=== PATIENT | female | born 1960 | race Caucasian/White ===

== ENCOUNTER 2023-10-21 15:35 | Emergency (ER) | payer BC, SELFPAY ==
[2023-10-21 15:42] VITALS: BP 141/85
--- NOTE | 2023-10-21 16:22 | ED.GENMED ---
History of Present Illness
General
Chief Complaint: Cough
Source: patient
Time Seen by Provider: 10/21/23 16:04
Travel History
Have you had any contact with someone who has COVID-19?: No
Do you have any symptoms of coronavirus? Fever > 100 degrees, chills, cough, shortness of breath, sore throat, loss of taste or smell, muscle aches, or headache?: No
History of Present Illness
History of Present Illness:
62-year-old female presents to the emergency room after being advised to come here by an urgent care. Patient has been feeling unwell for the past couple days with a right ear ache, cough and mild shortness of breath. Patient leads her asthma is
'acting up' due to a cold. She has not had a fever. But she feels mildly short of breath it is not to the extent that limits her activities. She has never been hospitalized for asthma. Patient states that the urgent care they gave her a
breathing treatment and a 'shot of steroids'. Patient felt jittery after the breathing treatment but actually felt like her breathing was better. However they measured her pulse ox and stated it was too low at 94%.
Past History
Past History
ED Past Medical History: Other (Anxiety); Negative CAD, Cancer, HTN or Hypercholesterolemia
ED Past Surgical History: Appendectomy and ; Negative Cholecystectomy
Social History
Tobacco: Non-smoker
Drug: None
Personal:
Living: with family
Employment: Employed
Family History
Family History: Hypertension
Phy Exam
Physical Exam
Physical Exam:
General: Awake, Alert, Oriented X3. No acute distress.
Vitals: unremarkable
Head: Atraumatic
Eyes: Pupils equal, EOMI
Ears: Left TM normal, right TM mildly erythematous and bulging
Throat: Airway intact, no exudates
Neck: Trachea midline
Lungs: Clear and equal b/l
Heart: Regular rate, no murmurs
Abd: Soft, Nontender, No pulsatile mass
Neuro: Nonfocal
Skin: Warm, dry, no rash
Extremities: pulses equal b/l, no edema
Course
Orders/Labs/Results
Orders:
Orders
10/21/23 16:21
COVID-19 Antigen Stat
Source: Nasal Swab
Influenza A+B Rapid Molecular Urgent
FRANKIE Source: Nasal Swab
Specimen Description:
Vital Signs
Initial and Last Documented VS:
Initial Vital Signs
Temp Pulse Resp BP Pulse Ox
98.2 F 105 18 141/85 98
10/21/23 15:42 10/21/23 15:42 10/21/23 15:42 10/21/23 15:42 10/21/23 15:42
Last Documented Vital Signs
Temp Pulse Resp BP Pulse Ox
98.2 F 100 18 141/85 95
10/21/23 15:42 10/21/23 17:10 10/21/23 15:42 10/21/23 15:42 10/21/23 17:10
MDM/Problems Addressed
Differential Diagnosis Includes:
I has been exact viral illness
MDM/Problems Addressed:
Patient sent for an abnormal pulse ox at urgent care. Here her pulse ox is normal. Her exam is pretty clear. COVID and flu test were sent here which are normal. Entirely was transpiring at the urgent care prompting the patient's transfer to the
ER but she appears quite stable now. Her right ear was a bit erythematous and they told her she had a ear infection at the urgent care so we will cover that with amoxicillin. Will give her short course of prednisone for her asthma exacerbation.
Patient stable for discharge home.
Chronic conditions affecting care: Asthma
Acute Exacerbation and/or Progression of Chronic Illness: Asthma
*Pulse Oximetry
Patient hypoxic: no
*Critical Care Note
Total Time (30-74mins, 75-104mins- exclusive of procedures): Not Applicable
ED Attending Note
-
Portions of this chart may have been created with voice recognition software.� Occasional wrong word or��sound alike� substitutions may have occurred due to the inherent limitations of voice recognition software.
Discharge Plan
Departure
Patient Disposition: Home (Routine Discharge)
Date of Disposition: 10/21/23
Time of Disposition: 16:50
Patient with high blood pressure during this ER visit?: Yes
Condition: Good
Discharge Problem:
Asthma exacerbation, Acute ear infection
Instructions: Asthma, Adult ED, Ear Infections (Otitis Media) in Adults (DC), BLOOD PRESSURE
Prescriptions:
New
amoxicillin 500 mg tablet
500 mg PO TID Qty: 21 0RF
prednisone 20 mg tablet
40 mg PO DAILY Qty: 8 0RF
No Action
clonazepam 0.5 MG tablet
0.75 mg PO HS
venlafaxine [Effexor] 100 MG tablet
150 mg PO DAILY
hydrocodone-acetaminophen [Vicodin] 1 EACH tablet
1 ea PO .Q4-6HPRN Qty: 12 0RF
Patient Comments:
never took only prescribed
hydrochlorothiazide 12.5 MG capsule
12.5 mg PO Daily Qty: 30 0RF
Referrals:
Jenifer Gautam CRNP [Family Provider] -
Interventions
Interventions:
*Risk Screen - Suicide Last Done: 10/21/23 15:42
*General Assessment Last Done: 10/21/23 15:42
*Neglect/Abuse Screening Last Done: 10/21/23 17:11
ED- Fall Risk Assessment Last Done: 10/21/23 16:40
*ED COVID-19 Vaccine History Last Done: 10/21/23 15:42
*Nursing Disposition Last Done: 10/21/23 17:11
ED- Pulmonary Assessment Last Done: 10/21/23 16:40
Discharge Date and Time
Discharge Date/Time: 10/21/23 17:11
Print Language: ESTONIAN
[2023-10-21 16:44] LABS: COVID-19 Antigen Negative (Negative)
== END 2023-10-21 17:11 | disposition home or self-care (01) ==
LOC: EMR 15:35
PROVIDERS: EMERGENCY PHYSICIAN Emergency Medicine; FAMILY PHYSICIAN Nurse Practitioner Primary Care
DX: H66.91 Otitis media, unspecified, right ear (principal); J45.901 Unspecified asthma with (acute) exacerbation; R03.0 Elevated blood-pressure reading, without diagnosis of hypertension; Z11.52 Encounter for screening for COVID-19
CPT/HCPCS: 99283; 87502; 87811

== ENCOUNTER 2023-12-14 18:01 | Emergency (ER) | payer BC, SELFPAY ==
[2023-12-14 18:22] VITALS: BP 141/89
[2023-12-14] MEDS: TORADOL 30 MG IM (20:43)
[2023-12-14 20:45] VITALS: BP 137/93
[2023-12-14 21:28] VITALS: BP 137/93
--- NOTE | 2023-12-18 07:49 | ED.GENMED ---
History of Present Illness
General
Chief Complaint: Musculo-Skeletal Complaint
Source: patient
Exam Limitations: none
Time Seen by Provider: 12/14/23 19:59
Nursing documentation reviewed up to this point in time: agreed with
Travel History
Have you had any contact with someone who has COVID-19?: No
Do you have any symptoms of coronavirus? Fever > 100 degrees, chills, cough, shortness of breath, sore throat, loss of taste or smell, muscle aches, or headache?: No
History of Present Illness
History of Present Illness:
pt is a 63 y/o F with h/o asthma
here with persistent L knee pain
says she missed a step 1 mo ago and has had pain ever since. she never fell onto her knee but felt something happen during the mis-step
she rivas shad medial pain worse with stairs
went to ortho last week and got a steroid injection and was told that it should kick in in about a week but she has not had relief
she has been using motrin without relief
today pain si worse with weight bearing. no signfiicant swelling
feels pain in the bakc of her knee as well, no swleling
no calf emily/swelling, foot swelling, fever, chills, sob
Past History
Past History
ED Past Medical History: Other (Anxiety); Negative CAD, Cancer, HTN or Hypercholesterolemia
ED Past Surgical History: Appendectomy and ; Negative Cholecystectomy
Social History
Tobacco: Non-smoker
Drug: None
Personal:
Living: with family
Employment: Employed
Family History
Family History: Hypertension
Review of Systems
Review of Systems
Allergies reviewed?: Yes
All Other Systems: Not applicable
Phy Exam
Physical Exam
Physical Exam:
GENERAL: Alert , in no apparent distress, comfortable at rest
HEAD: NCAT
CV: 2+ DP PULSES B/L
NEUROLOGICAL: Alert and oriented, no focal neuro deficits, , 5/5 strength, sensation intact, ambulation slight limp left leg
SKIN: Warm and dry, no redeness, warmth
MUSCULOSKELETAL: no significant swelling in the knee appreciated, minimal medial knee tenderness pain with straight leg raise but able to raise leg; no effusion
no posterior swelling
calf nontneder
normal foot/ankle
pain with varus and valgus stress
PSYCH: Normal and appropriate interaction.
Course
Orders/Labs/Results
Orders:
Orders
12/14/23 18:28
CR Knee - Left 4 Or More View* Urgent
Comment:
Reason For Exam: pain
12/14/23 20:31
Ketorolac [Toradol] 30 mg IM NOW STA
Vital Signs
Initial and Last Documented VS:
Initial Vital Signs
Temp Pulse Resp BP Pulse Ox
98.5 F 105 20 141/89 95
12/14/23 18:22 12/14/23 18:22 12/14/23 18:22 12/14/23 18:22 12/14/23 18:22
Last Documented Vital Signs
Temp Pulse Resp BP Pulse Ox
98.5 F 94 20 137/93 95
12/14/23 18:22 12/14/23 21:28 12/14/23 18:22 12/14/23 21:28 12/14/23 18:22
MDM/Problems Addressed
Differential Diagnosis Includes:
meniscus injury, sprain, arthritis
less likely DVT
MDM/Problems Addressed:
63 y/o F with L knee pain after nearly falling 1 mo aog
saw ortho and got cortisone
no relief
no worsening appearnace to knee but wose pain with walking
requesting MRI
knee exam some medial pain with movement but no inability to move, effusion, signs of infection
probably meniscus injury
needs f/u with ortho
xrays indep reviewed, mild arthritis
chane nsaid to meloxicam
crutch/cane recommended
miguel wrap
return precations
*Critical Care Note
Total Time (30-74mins, 75-104mins- exclusive of procedures): Not Applicable
ED Attending Note
-
Portions of this chart may have been created with voice recognition software.� Occasional wrong word or��sound alike� substitutions may have occurred due to the inherent limitations of voice recognition software.
Discharge Plan
Departure
Patient Disposition: Home (Routine Discharge)
Date of Disposition: 12/14/23
Time of Disposition: 20:31
Patient with high blood pressure during this ER visit?: Yes
Condition: Fair
Covid-19: Not Applicable
Discharge Problem:
Acute knee pain
Instructions: Knee Pain (DC)
Prescriptions:
New
meloxicam 7.5 mg tablet
7.5 mg PO DAILY Qty: 10 0RF
No Action
clonazepam 0.5 MG tablet
0.75 mg PO HS
venlafaxine [Effexor] 100 MG tablet
150 mg PO DAILY
hydrocodone-acetaminophen [Vicodin] 1 EACH tablet
1 ea PO .Q4-6HPRN Qty: 12 0RF
Patient Comments:
never took only prescribed
hydrochlorothiazide 12.5 MG capsule
12.5 mg PO Daily Qty: 30 0RF
amoxicillin 500 mg tablet
500 mg PO TID Qty: 21 0RF
prednisone 20 mg tablet
40 mg PO DAILY Qty: 8 0RF
Referrals:
Jenifer Gautam CRNP [Family Provider] - Follow up in 2-3 days
Activity Restrictions/Additional Instructions:
FOR NOW, STOP THE ALEVE OR IBURPROEN AND TRY MELOXICAM 7.5 MG ONCE A DAY WITH FOOD
DO THIS FOR ABOUT 7 DAYS
YOU SHOULD WRAP YOUR KNEE WITH MIGUEL WRAP DURING THE DAY
TAKE IT OFF AT NIGHT
PROBABLY WOULD BE GOOD TO GET A CANE TO USE IN YOUR OPPOSITE HAND TO HELP ALLEVIATE THE PRESSURE ON THE LEFT LEG WHEN YOU WALK
FOLLOW UP WITH ORTHOPEDICS TOMORROW
RETURN FRO: REDNESS, SWELLING SO SEVERE YOU CANNOT BEND THE KNEE, CALF PAIN/SWELLING, INABILITY TO WALK, FEVER, OR ANY CONCERNS.
Interventions
Interventions:
*Risk Screen - Suicide Last Done: 12/14/23 18:22
*General Assessment Last Done: 12/14/23 18:22
*Neglect/Abuse Screening Last Done: 12/14/23 18:22
*Nursing Disposition Last Done: 12/14/23 21:28
ED-Musculoskeletal Assessment Last Done: 12/14/23 18:57
Discharge Date and Time
Discharge Date/Time: 12/14/23 21:29
Print Language: BURMESE
== END 2023-12-14 21:29 | disposition home or self-care (01) ==
LOC: EMR 18:01
PROVIDERS: EMERGENCY PHYSICIAN Emergency Medicine; FAMILY PHYSICIAN Nurse Practitioner Primary Care
DX: M25.562 Pain in left knee (principal); W17.89XA Other fall from one level to another, initial encounter; J45.909 Unspecified asthma, uncomplicated; F41.9 Anxiety disorder, unspecified; M17.12 Unilateral primary osteoarthritis, left knee; G43.909 Migraine, unspecified, not intractable, without status migrainosus; F42.9 Obsessive-compulsive disorder, unspecified; D64.9 Anemia, unspecified
CPT/HCPCS: 99284; 96374; 73564

== ENCOUNTER → 2024-06-01 19:34 | Outpatient (REF) | payer BC, SELFPAY | LOC: WDC 19:34 | PROVIDERS: ATTENDING PHYSICIAN Nurse Practitioner Primary Care | DX: Z12.31 Encounter for screening mammogram for malignant neoplasm of breast (principal) | CPT/HCPCS: 77063; 77067 ==

== ENCOUNTER → 2024-06-22 16:28 | Outpatient (REF) | payer BC, SELFPAY | LOC: RAD 16:28 | PROVIDERS: ATTENDING PHYSICIAN Nurse Practitioner Family; FAMILY PHYSICIAN Nurse Practitioner Primary Care | DX: R05.3 Chronic cough (principal) | CPT/HCPCS: 71046 ==

== ENCOUNTER → 2024-12-14 08:14 | Outpatient (REF) | payer BC, SELFPAY | LOC: HWRCS 08:14 | PROVIDERS: ATTENDING PHYSICIAN Nurse Practitioner Primary Care | DX: I10 Essential (primary) hypertension (principal); R60.0 Localized edema | CPT/HCPCS: 93005; 93306 ==

== ENCOUNTER → 2025-01-05 10:25 | Outpatient (REF) | payer BC, SELFPAY | LOC: HWCARD 10:25 | PROVIDERS: ATTENDING PHYSICIAN Nurse Practitioner Primary Care | DX: R94.31 Abnormal electrocardiogram [ECG] [EKG] (principal) | CPT/HCPCS: 93005 ==

== ENCOUNTER → 2025-01-18 09:27 | Outpatient (REF) | payer BC, SELFPAY | LOC: HWRAD 09:27 | PROVIDERS: ATTENDING PHYSICIAN Nurse Practitioner Primary Care | DX: E03.8 Other specified hypothyroidism (principal) | CPT/HCPCS: 76536 ==